=== PATIENT | male | born 1995 | race Hispanic/Latino ===

== ENCOUNTER 2023-04-14 13:49 | Emergency (ER) | payer OTHER ==
[2023-04-14] MEDS ORDERED: HYDROCODONE/APAP 10/325 TAB ONE (14:09)
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
[2023-04-14 16:39] VITALS: TEMP 98
[2023-04-14 16:44] VITALS: BP 118/78; O2SAT 100
== END 2023-04-14 16:24 | disposition home or self-care (01) ==
LOC: ER 13:49
DX: S00.83XA Contusion of other part of head, initial encounter (principal); M54.2 Cervicalgia; F17.210 Nicotine dependence, cigarettes, uncomplicated
CPT/HCPCS: 70450; 70486; 72125; 76377; 99284